=== PATIENT | female | born 1995 | race Two or more races ===

== ENCOUNTER 2018-04-01 13:09 | Emergency (ER) | payer OTHER ==
[~2018-04-01] VITALS: Ht 167.6 cm; Wt 59.9 kg
[~2018-04-01 13:09] MED LIST: CATAFLAM50 MG PO; PERCOCET 5/3251 TAB PO
== END 2018-04-01 17:34 | disposition home or self-care (01) ==
LOC: ER 13:09
DX: N94.6 Dysmenorrhea, unspecified (principal); N80.9 Endometriosis, unspecified; R10.2 Pelvic and perineal pain

== ENCOUNTER 2021-08-03 18:04 | Emergency (ER) | payer OTHER ==
[~2021-08-03] VITALS: Ht 167.6 cm; Wt 59.0 kg
[2021-08-03] MEDS ORDERED: MICROGESTIN FE1 EAC1 PO (18:27)
== END 2021-08-03 20:05 | disposition home or self-care (01) ==
LOC: ER 18:04
DX: R07.89 Other chest pain (principal); Z03.818 Encounter for observation for suspected exposure to other biological agents ruled out; J45.998 Other asthma

== ENCOUNTER 2021-08-13 14:40 | Outpatient (CLI) | payer OTHER ==
[~2021-08-13 14:40] MED LIST changes: +MICROGESTIN FE1 EAC1 PO
== END 2021-08-13 14:49 | disposition home or self-care (01) ==
LOC: SONOGRAMA 14:40
PROVIDERS: ATTEND General Practice
DX: M54.2 Cervicalgia (principal); M53.83 Other specified dorsopathies, cervicothoracic region

== ENCOUNTER 2024-09-02 06:27 | Inpatient (IN) | payer OTHER ==
[~2024-09-02] VITALS: Ht 167.6 cm; Wt 61.2 kg
[~2024-09-02 06:27] MED LIST changes: +BACTRIM DS TAB1 EACH PO; +DICLOFENAC SODI75 MG PO; +JUNEL 1 MG-201 EACH PO
--- NOTE | 2024-09-02 07:04 | NUR ---
SE RECBE PACIENTE ALERTA Y ORIENTADA X3 REFIERE VENIR POR AARON CELLULITIS EN EL PIE JAKE,
[2024-09-02] MEDS ORDERED: PIPERACILLIN/TAZOBACTAM SODIUM 3.375 GM VIAL IV SCH (08:48)
[2024-09-02] MEDS ORDERED: DIPHENHYDRAMINE HCL 50 MG/ML VIAL 1ML IV ONE (09:00)
[2024-09-02] MEDS ORDERED: TETANUS & DIPHTHERIA TOX,ADULT 0.5 ML VIAL IM ONE (09:00)
[2024-09-02] MEDS ORDERED: ONDANSETRON HCL 2 MG/ML VIAL IV ONE (09:00)
[2024-09-02] MEDS ORDERED: FAMOtidine 10 MG/ML (4ML VIAL) IV ONE (09:00)
[2024-09-02] MEDS ORDERED: 0.9 % SODIUM CHLORIDE 1,000 ML IV SCH (09:00)
[2024-09-02 09:27] LABS: HEMATOCRIT 39.2 % (36.0-45.00); MEAN CELL VOLUME 84.1 fL (80.00-100.00); MEAN CORPUSCULAR HGB CONC 33.3 g/dl (32.0-36.0); PLATELET COUNT 256 K/uL (150-450); RED BLOOD COUNT 4.66 M/uL (4.00-6.00); RED CELL DISTRIBUTION WIDTH 14.6 % (11.5-14.5)
[2024-09-02 09:39] LABS: ERYTHROCYTE SEDIMENTATION RATE 11 mm/hr
[2024-09-02 09:50] LABS: INR 1.01
[2024-09-02 09:57] LABS: ALBUMIN 4.2 gm/dL (3.4-5.0); ALKALINE PHOSPHATASE 50 U/L (50-136); ALT/SGPT 18 U/L (12-78); ANION GAP 9 (10.0-20.0); AST/SGOT 19 U/L (15-37); BILIRUBIN TOTAL 0.49 mg/dL (0.3-1.2); BLOOD UREA NITROGEN 9 mg/dL (7-18); BUN CREA RATIO 11 (7.0-25.0); CALCIUM 9.3 mg/dL (8.5-10.1); CARBON DIOXIDE 26 mEq/L (21-32); CHLORIDE 103 mmol/L (98-107); CREATININE SERUM 0.81 mg/dL (0.55-1.02); GFR 83.02; GLOBULINA 4.3 G/DL (2.4-3.5); GLUCOSE FASTING 89 mg/dL (65-100); OSMOLALITY SERUM 266 MOSM/KG (275-295); POTASSIUM 3.92 mEq/L (3.5-5.1); SODIUM 134 mmol/L (136-145); TOTAL PROTEIN 8.5 gm/dL (6.4-8.2)
[2024-09-02 10:03] LABS: C-REACTIVE PROTEIN 4.82 MG/DL (0.00-0.29); HCG QUANTITATIVE < 1 mUI/mL (1-3)
[2024-09-02 10:05] LABS: D DIMER 1.16 MG/L; PARTIAL THROMBOPLASTIN TIME 26.5 SECONDS (22.0-34.0)
[2024-09-02 10:41] LABS: URINE APPEARANCE Cloudy; URINE BILIRRUBIN Negative (NEGATIVE); URINE BLOOD Negative; URINE COLOR Yellow; URINE GLUCOSE Negative (NEGATIVE); URINE KETONE Negative (NEGATIVE); URINE LEUKOCYTE Negative; URINE NITRATE Negative; URINE PROTEIN Negative (NEGATIVE); URINE UROBILINOGEN 0.2 E.U./dl
--- NOTE | 2024-09-02 10:42 | NUR ---
SE ORIENTA A PACIENTE SOBRE TRATAMIENTO MEDICO. SE COLECTAN MUESTRAS DE LABORATORIO Y SE CANALIZA A PACIENTE BAJO MEDIDAS ASEPTICAS. SE ADMINISTRAN MEDICAMENTOS EDA ORDEN MEDICA. SE NOTIFICAN X-RAYS Y CT. SE REALIZA EKG. PACIENTE MANEJADA POR JOE CHAPMAN.
[2024-09-02 10:46] LABS: URINE BACTERIA 8.8 uL (0.0-1933); URINE EPITHELIAL CELLS 37.6 uL (0.0-38.8); URINE RBC 6.7 uL (0.0-20.8); URINE WBC 7.8 uL (0.0-23.2)
[2024-09-02 11:21] LABS: URINE CAST 0.15 uL (0.0-1.40)
[2024-09-02] MEDS ORDERED: ENOXAPARIN SODIUM 30 MG/0.3 ML SYRINGE SUBCUTANEO SCH (11:21)
[2024-09-02] MEDS ORDERED: MORPHINE SULFATE 2 MG/ML SYRINGE IV ONE (11:30)
[2024-09-02] MEDS ORDERED: SODIUM CHLORIDE 0.45 % 1,000 ML IV SCH (17:00)
[2024-09-02] MEDS ORDERED: VANCOMYCIN HCL 1,000 MG VIAL IV SCH (17:22)
[2024-09-02] MEDS ORDERED: TERBINAFINE HCL 15 GM CREAM..G. TOP SCH (17:26)
[2024-09-02] MEDS ORDERED: IBUprofen 400 MG TABLET PO SCH (18:22)
[2024-09-02] MEDS ORDERED: ONDANSETRON HCL 4 MG in DEXTROSE 5 % IN WATER 50 ML IV PRN (18:30)
[2024-09-02 20:00] VITALS: BP 107/65; O2SAT 99
[2024-09-02] MEDS ORDERED: ACETAMINOPHEN 500 MG GEL..CAP PO SCH (21:00)
[2024-09-02] MEDS ORDERED: MEPERIDINE HCL/PF 50 MG/ML VIAL IM STA (21:22)
[2024-09-03 02:20] VITALS: BP 103/65; O2SAT 99
[2024-09-03] MEDS ORDERED: LACTOBACILLUS ACIDOPHILUS 1 CAP CAP PO SCH (09:00)
[2024-09-03 09:41] VITALS: BP 117/71; O2SAT 100
[2024-09-03] MEDS ORDERED: TERBINAFINE HCL 15 GM CREAM..G. TOP SCH (12:00)
[2024-09-03] MEDS ORDERED: CEFTRIAXONE SODIUM 2,000 MG VIAL IV SCH (17:00)
[2024-09-03 17:10] VITALS: BP 116/74; O2SAT 98
[2024-09-03] MEDS ORDERED: FAMOtidine 20 MG TABLET PO SCH (21:00)
[2024-09-04 03:13] VITALS: BP 108/63; O2SAT 100
[2024-09-04 08:49] VITALS: BP 106/66; O2SAT 100
[2024-09-04 16:37] VITALS: BP 121/69
[2024-09-05 01:12] VITALS: BP 102/61; O2SAT 99
[2024-09-05 06:31] LABS: HEMATOCRIT 32.4 % (36.0-45.00); MEAN CELL VOLUME 84.4 fL (80.00-100.00); MEAN CORPUSCULAR HEMOGLOBIN 28.5 pg (27.00-32.0); MEAN CORPUSCULAR HGB CONC 33.8 g/dl (32.0-36.0); PLATELET COUNT 239 K/uL (150-450); RED BLOOD COUNT 3.84 M/uL (4.00-6.00); RED CELL DISTRIBUTION WIDTH 14.2 % (11.5-14.5)
[2024-09-05 07:11] LABS: ALBUMIN 3.1 gm/dL (3.4-5.0); BILIRUBIN TOTAL 0.22 mg/dL (0.3-1.2); CALCIUM 9.3 mg/dL (8.5-10.1); CREATININE SERUM 0.75 mg/dL (0.55-1.02); GFR 90.73; GLOBULINA 3.3 G/DL (2.4-3.5); POTASSIUM 4.73 mEq/L (3.5-5.1); TOTAL PROTEIN 6.4 gm/dL (6.4-8.2)
[2024-09-05] MEDS ORDERED: HYDROCORTISONE 1% 29 G TUBE TOP SCH (09:00)
[2024-09-05 10:00] VITALS: BP 126/70; O2SAT 99
[2024-09-05] MEDS ORDERED: INTESTINEX680 M1 PO (16:02)
[2024-09-05] MEDS ORDERED: TERBINAFINE15 GM TOP (16:02)
[2024-09-05] MEDS ORDERED: HYDROCORTISO453.6 GM TOP (16:03)
[2024-09-05] MEDS ORDERED: CEPHALEXIN500 MG PO (16:05)
[2024-09-05] MEDS ORDERED: DICLOFENAC POTA50 MG PO (16:07)
[2024-09-05] MEDS ORDERED: FAMOTIDINE20 MG PO (16:08)
[2024-09-05 16:50] VITALS: BP 125/63; O2SAT 100
== END 2024-09-05 19:54 | disposition home or self-care (01) | DRG 603 ==
LOC: ER 06:29 → MEDI 17:46
PROVIDERS: General Practice; Student in an Organized Health Care Education/Training Program; ADMIT Internal Medicine Cardiovascular Disease; ATTEND Internal Medicine Cardiovascular Disease
PROC: B54DZZZ Ultrasonography of Bilateral Lower Extremity Veins (ICD-10-PCS; principal; 2024-09-02)
DX: L03.116 Cellulitis of left lower limb (principal); B95.61 Methicillin susceptible Staphylococcus aureus infection as the cause of diseases classified elsewhere; F32.9 Major depressive disorder, single episode, unspecified; B35.3 Tinea pedis; I87.2 Venous insufficiency (chronic) (peripheral)